=== PATIENT | male | born 1955 | race Caucasian/White ===

== ENCOUNTER 2018-04-02 07:48 | Emergency (ER) | payer BC ==
[2018-04-02] MEDS ORDERED: Fluorescein Opthalmic Strip ONE (08:08)
[2018-04-02] MEDS ORDERED: valACYclovir 500 MG TAB ONE (08:29)
[2018-04-02] MEDS ORDERED: Erythromycin Base 0.5% Ophth Oint 3.5 gm Tube ONE (08:29)
== END 2018-04-02 08:43 | disposition home or self-care (01) ==
LOC: BURERS 07:48
DX: B02.30 Zoster ocular disease, unspecified (principal)
CPT/HCPCS: 99282